=== PATIENT | male | born 1945 | race Caucasian/White ===

== ENCOUNTER 2018-01-01 19:44 | Inpatient (IN) | payer MEDICARE, OTHER ==
[~2018-01-01] VITALS: Ht 165.1 cm; Wt 80.8 kg
[~2018-01-01 19:44] MED LIST: AMOX500C PO; ASPI81TA23 PO; CELE20TA PO; DILA100C PO; LACT10SO PO; NORC5TAB PO; PLAV75TA29 PO; QUET1TAB7 PO; REST15CA PO; TAMS0.4C4 PO
[2018-01-01 19:53] VITALS: BP 137/73; PULSE 78; TEMP 97.8; O2SAT 97
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
[2018-01-01 20:40] LABS: BASOPHIL % 0.6 % (0.0-2.0); EOSINOPHIL # 0.1 TH/MM3 (0-0.4); EOSINOPHIL % 1.6 % (0.0-4.0); HEMATOCRIT 37.5 % (39.0-51.0); HEMOGLOBIN 12.8 GM/DL (13.0-17.0); LYMPH % 19.4 % (9.0-44.0); LYMPHOCYTE # 1.7 TH/MM3 (1.0-4.8); MEAN CELL VOLUME 86.1 FL (80.0-100.0); MEAN CORPUSCULAR HEMOGLOBIN 29.3 PG (27.0-34.0); MEAN PLATELET VOLUME 8.9 FL (7.0-11.0); MONO % 9.9 % (0.0-8.0); MONOCYTE # 0.9 TH/MM3 (0-0.9); NEUT % 68.5 % (16.0-70.0); PLATELET COUNT 241 TH/MM3 (150-450); RED BLOOD COUNT 4.36 MIL/MM3 (4.50-5.90); RED CELL DISTRIBUTION WIDTH 14.4 % (11.6-17.2); WHITE BLOOD COUNT 8.7 TH/MM3 (4.0-11.0)
[2018-01-01] MEDS ORDERED: LORazepam 2 MG/ML VIAL IM ONE (20:45)
[2018-01-01] MEDS ORDERED: diphenhydrAMINE HCL 50 MG/ML VIAL IM ONE (20:45)
[2018-01-01 20:56] LABS: ALBUMIN 3.7 GM/DL (3.4-5.0); ALT (GPT) 15 U/L (12-78); AST (GOT) 16 U/L (15-37); BICARBONATE 23.5 MEQ/L (21.0-32.0); BLOOD UREA NITROGEN 17 MG/DL (7-18); CHLORIDE 109 MEQ/L (98-107); CREATININE 1.07 MG/DL (0.60-1.30); GLOMERULAR FILTRATION RATE 68 ML/MIN (>89); GLUCOSE,RANDOM 113 MG/DL (74-106); SODIUM (NA) 142 MEQ/L (136-145)
[2018-01-01 21:05] LABS: ALKALINE PHOSPHATASE 94 U/L (45-117); TOTAL BILIRUBIN ADULT 0.2 MG/DL (0.2-1.0); TOTAL PROTEIN 7.2 GM/DL (6.4-8.2)
[2018-01-01 22:21] LABS: BILIRUBIN, URINE NEG (NEG); BLOOD, URINE NEG (NEG); GLUCOSE,URINE NEG (NEG); HYALINE CAST, URINE 5 /lpf (RARE); KETONE, URINE TRACE mg/dL (NEG); MUCUS URINE FEW /lpf (OCC); NITRITE,URINE NEG (NEG); URINE COLOR YELLOW (YELLW/STRAW); URINE LEUKOCYTE ESTERASE NEG (NEG)
[2018-01-01] MEDS ORDERED: OLANZapine IM 10 MG VIAL IM ONE (23:45)
[2018-01-02 06:50] VITALS: RESP 18
[2018-01-02] MEDS ORDERED: QUEtiapine FUMARATE 25 MG TAB PO ONE (14:00)
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
[2018-01-02] MEDS ORDERED: ALUMINUM/MAGNESIUM/SIMETH 30 ML CUP PO PRN (17:00)
[2018-01-02] MEDS ORDERED: MAGNESIUM HYDROXIDE SUSP 30 ML CUP PO PRN (17:00)
[2018-01-02] MEDS ORDERED: LORA-474 PO (17:12)
[2018-01-02] MEDS ORDERED: CELE20TA PO (17:12)
[2018-01-02] MEDS ORDERED: NEXI20CA PO (17:12)
[2018-01-02] MEDS ORDERED: SERO50TA PO (17:12)
[2018-01-02] MEDS ORDERED: LORazepam 2 MG/ML VIAL IM ONE (17:30)
[2018-01-02 18:05] VITALS: BP 127/78; PULSE 65; RESP 18; TEMP 97.7; O2SAT 97
[2018-01-02] MEDS ORDERED: LORazepam 2 MG/ML VIAL IV PUSH PRN ×4 (18:30)
[2018-01-02] MEDS ORDERED: FLUMAZENIL 0.5 MG/5 ML VIAL IV PUSH PRN (18:30)
[2018-01-02] MEDS ORDERED: LORazepam 2 MG TAB PO PRN (18:30)
[2018-01-02] MEDS: QUEtiapine FUMARATE 25 MG TAB PO SCH (21:52)
[2018-01-02] MEDS: LORazepam 1 MG TAB PO SCH (21:52)
[2018-01-03 06:20] VITALS: BP 124/62; PULSE 68; RESP 17; TEMP 97.9; O2SAT 99
[2018-01-03 08:33] LABS: BICARBONATE 30.2 MEQ/L (21.0-32.0); BLOOD UREA NITROGEN 18 MG/DL (7-18); CALCIUM 8.6 MG/DL (8.5-10.1); CHLORIDE 108 MEQ/L (98-107); CHOLESTEROL 206 MG/DL (120-200); CREATININE 0.94 MG/DL (0.60-1.30); GLOMERULAR FILTRATION RATE 79 ML/MIN (>89); GLUCOSE,RANDOM 86 MG/DL (74-106); SODIUM (NA) 144 MEQ/L (136-145); TRIGLYCERIDES 112 MG/DL (42-150)
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
[2018-01-03 08:59] LABS: CHOLESTEROL/ HDL RATIO 4.15 RATIO; HDL CHOLESTEROL 49.6 MG/DL (40.0-60.0); LDL CHOLESTEROL 134 MG/DL (0-99)
[2018-01-03] MEDS: QUEtiapine FUMARATE 25 MG TAB PO SCH ×2 (10:24→20:21)
[2018-01-03] MEDS: LORazepam 1 MG TAB PO SCH ×2 (10:24→20:21)
[2018-01-03] MEDS: PANTOPRAZOLE SOD 20 MG DELAYED RELEASE TAB PO SCH (10:25)
[2018-01-03] MEDS: CITALOPRAM HYDROBROMIDE 20 MG TAB PO SCH (10:25)
[2018-01-03 12:17] LABS: HEMOGLOBIN A1C 5.7 % (4.3-6.0)
--- NOTE | 2018-01-03 16:59 | EKG ---
Date Performed: 01/03/2018 Time Performed: 09:46:13 PTAGE: 72 years EKG: Sinus rhythm NORMAL ECG PREVIOUS TRACING : 06/22/2016 08.47 Since the previous tracing, no significant change noted DOCTOR: Bisi Vasquez Interpretating Date/Time 01/03/2018 16:58:52
[2018-01-03] MEDS ORDERED: HALOPERIDOL LACTATE 5 MG/ML AMP ONE (17:16)
[2018-01-03] MEDS ORDERED: LORazepam 2 MG/ML VIAL IM ONE (17:45)
[2018-01-03] MEDS ORDERED: HALOPERIDOL LACTATE 5 MG/ML AMP IM ONE (17:45)
[2018-01-03 17:53] VITALS: BP 122/69; PULSE 65; RESP 18; TEMP 98; O2SAT 99
[2018-01-04 05:16] VITALS: BP 127/68; PULSE 51; RESP 16; TEMP 97.8; O2SAT 99
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
--- NOTE | 2018-01-04 09:45 | PD.TTN ---
Patient Problems 1. Discharge planning 2. Medication compliance 3. Knowledge deficit 4. Lack of coping skills Progress Toward Goals Provider Present: Dr. Jesse Trinh Provider Input: MD recommendation to contact pt's previous facility to follow-up for re-admission. Psychiatric Counselors Present: Alanis Whiteside LCSW, Marcela eRsendez, [facility], Walter Griffin Jr., [facility], Supriya Rivera, [facility] Psych Therapist Input: Miguel to follow-up with discharge criteria by contacting [facility]. Group Spec/RT/OT/LAINEZ Present: Caryn Monroy OT, FATOU Simons Group Spec/RT/OT/LAINEZ Input: Pt has not been attending groups , he continues to be 1:1 supervision. Discharge Plan Pt is expected to return to [facility] Documentation Scribe: caryn monroy ms, otr Caryn Monroy OTR January 04, 2018 09:45
[2018-01-04] MEDS ORDERED: LORazepam 1 MG TAB PO SCH (10:00)
[2018-01-04] MEDS: PANTOPRAZOLE SOD 20 MG DELAYED RELEASE TAB PO SCH (10:21)
[2018-01-04] MEDS: LORazepam 1 MG TAB PO SCH ×2 (10:21→20:57)
[2018-01-04] MEDS: CITALOPRAM HYDROBROMIDE 20 MG TAB PO SCH (10:21)
[2018-01-04] MEDS ORDERED: ERGOCALCIFEROL (VIT D2) 50,000 UNIT CAP PO ONE (11:30)
[2018-01-04] MEDS: QUEtiapine FUMARATE 25 MG TAB PO SCH ×2 (12:18→18:00)
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
[2018-01-04 18:06] VITALS: BP 115/55; PULSE 60; RESP 18; TEMP 98.4; O2SAT 97
[2018-01-04 18:07] VITALS: BP 115/55; PULSE 60; RESP 18; TEMP 98.4; O2SAT 97
[2018-01-05] MEDS: hydrOXYzine HCL 50 MG TAB PO PRN (00:01)
[2018-01-05 05:47] VITALS: BP 131/65; PULSE 76; RESP 17; TEMP 97.8
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
--- NOTE | 2018-01-05 08:50 | HHI.PYPN ---
Subjective Remarks Patient seen in his room with sitter, chart reviewed, patient complaint medications, patient discussed with nurse. Patient had no behavioral issues overnight. Patient is calm and friendly diffusely disoriented and confused. Did not remember me from yesterday. Today states she does not have a . He has no children. For now continue treatment Mental Status Examination Appearance: Appropriate (In [facility]) Consciousness: Alert Orientation: Person Motor Activity: Abnormal gait (Shuffling gait) Speech: Other (Nonsensical speech pattern) Language: Other (Limited) Fund of Knowledge: Poor Attention and Concentration: Inadequate Memory: Impaired Mood: Appropriate, Oppositional (At times) Affect: Other (Decreased range and intensity) Thought Process & Associations: Other ([place]) Thought Content: Other (Markedly disorganized) Hallucination Type: None (Does not appear to be responding to internal stimuli) Delusion Type: None Suicidal Ideation: No Suicidal Plan: No Suicidal Intention: No Homicidal Ideation: No Homicidal Plan: No Homicidal Intention: No Insight: Poor Judgment: Poor Results Vitals/IOs Vital Signs Date Time Temp Pulse Resp B/P (MAP) Pulse Ox O2 Delivery O2 Flow Rate FiO2 01/05/18 05:47 97.8 76 17 131/65 (87) 01/04/18 18:07 97 Assessment & Plan Problem List: (1) Alzheimer's disease with late onset ICD Codes: G30.1 - Alzheimer's disease with late onset; F02.80 - Dementia in other diseases classified elsewhere without behavioral disturbance Assessment & Plan Estimated LOS: days patient continues diffusely confused and disoriented, no behavior problems overnight. For now continue treatment Justification for Cont. Inpt. At this time patient would decompensate a place to the lower level of care Discharge Planning To be determined possible return to his prior placement Request HC Surrog/Guard Advoc?: Yes Black Trinh MD January 05, 2018 08:50
[2018-01-05] MEDS: PANTOPRAZOLE SOD 20 MG DELAYED RELEASE TAB PO SCH (08:58)
[2018-01-05] MEDS: ASPIRIN EC 81 MG TABEC PO SCH (08:58)
[2018-01-05] MEDS: CITALOPRAM HYDROBROMIDE 20 MG TAB PO SCH (08:58)
[2018-01-05] MEDS: QUEtiapine FUMARATE 25 MG TAB PO SCH ×3 (08:59→18:00)
[2018-01-05] MEDS: LORazepam 1 MG TAB PO SCH ×2 (08:59→21:00)
[2018-01-05] MEDS: CHOLECALCIFEROL (VIT D3) 1000 UNIT TAB PO SCH (08:59)
[2018-01-05] MEDS: HYDROCORTISONE 0.5% CREAM 30 GM TOPICAL SCH ×2 (09:00→17:00)
[2018-01-05] MEDS: LORazepam 1 MG TAB PO PRN (13:46)
[2018-01-05 18:06] VITALS: BP 136/63; PULSE 80; RESP 18; O2SAT 96
[2018-01-06] MEDS: HYDROCORTISONE 0.5% CREAM 30 GM TOPICAL SCH ×3 (01:00→17:00)
[2018-01-06 06:00] VITALS: BP 147/78; PULSE 63; RESP 15; TEMP 97.4; O2SAT 98
[2018-01-06 08:26] VITALS: BP 109/64; PULSE 61; O2SAT 100
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
[2018-01-06] MEDS: CHOLECALCIFEROL (VIT D3) 1000 UNIT TAB PO SCH (09:31)
[2018-01-06] MEDS: QUEtiapine FUMARATE 25 MG TAB PO SCH ×3 (09:31→17:23)
[2018-01-06] MEDS: ASPIRIN EC 81 MG TABEC PO SCH (09:31)
[2018-01-06] MEDS: LORazepam 1 MG TAB PO SCH ×2 (09:31→20:17)
[2018-01-06] MEDS: PANTOPRAZOLE SOD 20 MG DELAYED RELEASE TAB PO SCH (09:31)
[2018-01-06] MEDS: CITALOPRAM HYDROBROMIDE 20 MG TAB PO SCH (09:31)
--- NOTE | 2018-01-06 10:05 | HHI.PYPN ---
Subjective Remarks Met with patient's caretakers who are and along with nurse Sheldon and counselor Supriya, the have been caring for this gentleman for many years. The also his power of managing attorney. They discussed with us his behaviors at and to go problems that led to this hospitalization. It is being investigated by DCFS at this time. Patient then sitting in his room with nurse and sitter, patient is quiet speaking in nonsensical words, refusing his oral medications. Though he did eat all of his breakfast. For now continue treatment encouraging compliance with medication Review of Systems Except as stated in HPI: all other systems reviewed are Neg Mental Status Examination Appearance: Appropriate (In [facility]) Consciousness: Alert Orientation: Person Motor Activity: Abnormal gait (Shuffling gait) Speech: Other (Nonsensical speech pattern) Language: Other (Limited) Fund of Knowledge: Poor Attention and Concentration: Inadequate Memory: Impaired Mood: Appropriate, Oppositional (At times) Affect: Other (Decreased range and intensity) Thought Process & Associations: Other ([place]) Thought Content: Other (Markedly disorganized) Hallucination Type: None (Does not appear to be responding to internal stimuli) Delusion Type: None Suicidal Ideation: No Suicidal Plan: No Suicidal Intention: No Homicidal Ideation: No Homicidal Plan: No Homicidal Intention: No Insight: Poor Judgment: Poor Results Vitals/IOs Vital Signs Date Time Temp Pulse Resp B/P (MAP) Pulse Ox O2 Delivery O2 Flow Rate FiO2 01/06/18 08:26 61 109/64 (79) 100 01/06/18 06:00 97.4 15 Assessment & Plan Problem List: (1) Alzheimer's disease with late onset ICD Codes: G30.1 - Alzheimer's disease with late onset; F02.80 - Dementia in other diseases classified elsewhere without behavioral disturbance Assessment & Plan Estimated LOS: days patient continues demented confused in all 4 spheres, showing mixed compliance with medication, though no significant behavioral problems. Placement may be problematic since there is a DCF investigation going on it and legal problems concerning this man's behavior Justification for Cont. Inpt. At this time patient would decompensate a place to a lower level of care Discharge Planning To be determined Request HC Surrog/Guard Advoc?: Yes Problem Qualifiers (1) Alzheimer's disease with late onset: Qualified Codes: G30.1 - Alzheimer's disease with late onset; F02.81 - Dementia in other diseases classified elsewhere with behavioral disturbance Black Trinh MD January 06, 2018 10:05
[2018-01-06 16:51] VITALS: BP 138/109; PULSE 70; RESP 16; TEMP 97.6; O2SAT 98
[2018-01-06 17:30] VITALS: BP 130/90
[2018-01-06] MEDS: ACETAMINOPHEN 325 MG TAB PO PRN (20:17)
[2018-01-07] MEDS: HYDROCORTISONE 0.5% CREAM 30 GM TOPICAL SCH (01:00)
[2018-01-07 06:00] VITALS: BP 164/78; PULSE 58; RESP 18; TEMP 97.1; O2SAT 99
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
[2018-01-07] MEDS ORDERED: HYDROCORTISONE 0.5% CREAM 30 GM TOPICAL PRN (09:00)
[2018-01-07] MEDS: PANTOPRAZOLE SOD 20 MG DELAYED RELEASE TAB PO SCH (10:26)
[2018-01-07] MEDS: QUEtiapine FUMARATE 25 MG TAB PO SCH ×3 (10:26→17:59)
[2018-01-07] MEDS: CHOLECALCIFEROL (VIT D3) 1000 UNIT TAB PO SCH (10:27)
[2018-01-07] MEDS: ASPIRIN EC 81 MG TABEC PO SCH (10:27)
[2018-01-07] MEDS: LORazepam 1 MG TAB PO SCH ×2 (10:27→20:52)
[2018-01-07] MEDS: CITALOPRAM HYDROBROMIDE 20 MG TAB PO SCH (10:38)
--- NOTE | 2018-01-07 14:49 | HHI.PYPN ---
Subjective Remarks Patient seen [place] [address] with his and caretakers. Patient retained with continuation of case by Romero Finch highway design engineer to be guardian advocate. Patient was quite quiet during the hearing. Patient calm when speaking with me on the unit. Continues diffusely confused. For now continue treatment Review of Systems Except as stated in HPI: all other systems reviewed are Neg Mental Status Examination Appearance: Appropriate (In [facility]) Consciousness: Alert Orientation: Person Motor Activity: Abnormal gait (Shuffling gait) Speech: Other (Nonsensical speech pattern) Language: Other (Limited) Fund of Knowledge: Poor Attention and Concentration: Inadequate Memory: Impaired Mood: Appropriate, Oppositional (At times) Affect: Other (Decreased range and intensity) Thought Process & Associations: Other ([place]) Thought Content: Other (Markedly disorganized) Hallucination Type: None (Does not appear to be responding to internal stimuli) Delusion Type: None Suicidal Ideation: No Suicidal Plan: No Suicidal Intention: No Homicidal Ideation: No Homicidal Plan: No Homicidal Intention: No Insight: Poor Judgment: Poor Results Vitals/IOs Vital Signs Date Time Temp Pulse Resp B/P (MAP) Pulse Ox O2 Delivery O2 Flow Rate FiO2 01/07/18 06:00 97.1 58 18 164/78 (106) 99 Intake and Output 01/07/18 01/07/18 01/08/18 08:00 16:00 00:00 Intake Total 360 ml Balance 360 ml Assessment & Plan Problem List: (1) Alzheimer's disease with late onset ICD Codes: G30.1 - Alzheimer's disease with late onset; F02.80 - Dementia in other diseases classified elsewhere without behavioral disturbance Assessment & Plan Estimated LOS: days patient continues confused and disoriented demented the most significant behavioral problems, retained with case continued by Dr. Finch for now continue treatment Justification for Cont. Inpt. At this time patient would decompensate a place to the lower level of care Discharge Planning Need to find appropriate placement Request HC Surrog/Guard Advoc?: Yes Problem Qualifiers (1) Alzheimer's disease with late onset: Qualified Codes: G30.1 - Alzheimer's disease with late onset; F02.81 - Dementia in other diseases classified elsewhere with behavioral disturbance Black Trinh MD January 07, 2018 14:49
[2018-01-07] MEDS: LORazepam 1 MG TAB PO PRN (17:59)
[2018-01-07 18:05] VITALS: BP 143/76; PULSE 52; RESP 16; TEMP 97.6; O2SAT 95
[2018-01-07 18:06] VITALS: BP 143/76; PULSE 52; RESP 16; TEMP 97.6; O2SAT 95
[2018-01-08 06:37] VITALS: BP 155/83; PULSE 65; RESP 17; O2SAT 97
--- NOTE | 2018-01-08 08:46 | HHI.PYPN ---
Subjective Remarks Patient seen in his room with floor staff, chart reviewed, patient discussed with nurse, patient compliant medication. Patient is alert diffusely confused but no significant behavioral problems. He is compliant with medications. For now to continue to work on placement issues Review of Systems Except as stated in HPI: all other systems reviewed are Neg Mental Status Examination Appearance: Appropriate (In [facility]) Consciousness: Alert Orientation: Person Motor Activity: Abnormal gait (Shuffling gait) Speech: Other (Nonsensical speech pattern) Language: Other (Limited) Fund of Knowledge: Poor Attention and Concentration: Inadequate Memory: Impaired Mood: Appropriate, Oppositional (At times) Affect: Other (Decreased range and intensity) Thought Process & Associations: Other ([place]) Thought Content: Other (Markedly disorganized) Hallucination Type: None (Does not appear to be responding to internal stimuli) Delusion Type: None Suicidal Ideation: No Suicidal Plan: No Suicidal Intention: No Homicidal Ideation: No Homicidal Plan: No Homicidal Intention: No Insight: Poor Judgment: Poor Results Vitals/IOs Vital Signs Date Time Temp Pulse Resp B/P (MAP) Pulse Ox O2 Delivery O2 Flow Rate FiO2 01/08/18 06:37 65 17 155/83 (107) 97 01/07/18 18:06 97.6 Intake and Output 01/08/18 01/08/18 01/09/18 08:00 16:00 00:00 Intake Total 0 ml Balance 0 ml Assessment & Plan Problem List: (1) Alzheimer's disease with late onset ICD Codes: G30.1 - Alzheimer's disease with late onset; F02.80 - Dementia in other diseases classified elsewhere without behavioral disturbance Assessment & Plan Estimated LOS: days patient continues demented confused. There are no behavioral problems at the present time for now continue treatment Justification for Cont. Inpt. At this time patient would decompensate a place to the lower level of care Discharge Planning To be determined Request HC Surrog/Guard Advoc?: Yes Problem Qualifiers (1) Alzheimer's disease with late onset: Qualified Codes: G30.1 - Alzheimer's disease with late onset; F02.81 - Dementia in other diseases classified elsewhere with behavioral disturbance Black Trinh MD January 08, 2018 08:46
[2018-01-08] MEDS: PANTOPRAZOLE SOD 20 MG DELAYED RELEASE TAB PO SCH (08:49)
[2018-01-08] MEDS: CITALOPRAM HYDROBROMIDE 20 MG TAB PO SCH (08:49)
[2018-01-08] MEDS: CHOLECALCIFEROL (VIT D3) 1000 UNIT TAB PO SCH (08:49)
[2018-01-08] MEDS: LORazepam 1 MG TAB PO SCH ×2 (08:49→20:46)
[2018-01-08] MEDS: ASPIRIN EC 81 MG TABEC PO SCH (08:50)
[2018-01-08] MEDS: QUEtiapine FUMARATE 25 MG TAB PO SCH ×3 (08:50→17:40)
[2018-01-08] MEDS: LORazepam 1 MG TAB PO PRN (15:26)
[2018-01-08 18:11] VITALS: BP 116/56; PULSE 87; RESP 18; O2SAT 97
[2018-01-09 06:00] VITALS: BP 134/66; PULSE 59; RESP 17; TEMP 97.4; O2SAT 97
[2018-01-09] MEDS: CITALOPRAM HYDROBROMIDE 20 MG TAB PO SCH (08:46)
[2018-01-09] MEDS: PANTOPRAZOLE SOD 20 MG DELAYED RELEASE TAB PO SCH (08:46)
[2018-01-09] MEDS: CHOLECALCIFEROL (VIT D3) 1000 UNIT TAB PO SCH (08:46)
[2018-01-09] MEDS: QUEtiapine FUMARATE 25 MG TAB PO SCH ×3 (08:46→18:00)
[2018-01-09] MEDS: LORazepam 1 MG TAB PO SCH ×2 (08:46→21:10)
[2018-01-09] MEDS: ASPIRIN EC 81 MG TABEC PO SCH (08:48)
--- NOTE | 2018-01-09 11:53 | HHI.PYPN ---
Subjective Remarks Pt seen and discussed with staff. He remains confused but has not been aggressive today. He is talking medications and is cooperative with car. He continues to have visual hallucinations and believes that people are in the bed with him per staff. He is oriented to self only and very disorganized and nonsensical. Mental Status Examination Appearance: Appropriate (In [facility]) Consciousness: Alert Orientation: Person Motor Activity: Abnormal gait (Shuffling gait) Speech: Other (Nonsensical speech pattern) Language: Other (Limited) Fund of Knowledge: Poor Attention and Concentration: Inadequate Memory: Impaired (very poor) Mood: Appropriate, Oppositional (At times) Affect: Other (Decreased range and intensity) Thought Process & Associations: Disorganized Thought Content: Other (Markedly nonsensical) Hallucination Type: None (Does not appear to be responding to internal stimuli) Delusion Type: None Suicidal Ideation: No Suicidal Plan: No Suicidal Intention: No Homicidal Ideation: No Homicidal Plan: No Homicidal Intention: No Insight: Poor Judgment: Poor Results Vitals/IOs Vital Signs Date Time Temp Pulse Resp B/P (MAP) Pulse Ox O2 Delivery O2 Flow Rate FiO2 01/09/18 06:00 97.4 59 17 134/66 (88) 97 Assessment & Plan Problem List: (1) Alzheimer's disease with late onset ICD Codes: G30.1 - Alzheimer's disease with late onset; F02.80 - Dementia in other diseases classified elsewhere without behavioral disturbance Assessment & Plan Continue current tx plan. Estimated LOS: days Justification for Cont. Inpt. risk of decompensation Request HC Surrog/Guard Advoc?: Yes Problem Qualifiers (1) Alzheimer's disease with late onset: Qualified Codes: G30.1 - Alzheimer's disease with late onset; F02.81 - Dementia in other diseases classified elsewhere with behavioral disturbance Carrol Howe MD January 09, 2018 11:53
[2018-01-09 18:45] VITALS: BP 131/81; PULSE 57; RESP 16; TEMP 97.8; O2SAT 98
[2018-01-10] MEDS: PANTOPRAZOLE SOD 20 MG DELAYED RELEASE TAB PO SCH (09:00)
[2018-01-10] MEDS: QUEtiapine FUMARATE 25 MG TAB PO SCH ×3 (09:00→17:15)
[2018-01-10] MEDS: ASPIRIN EC 81 MG TABEC PO SCH (09:00)
[2018-01-10] MEDS: LORazepam 1 MG TAB PO SCH ×2 (09:00→20:35)
[2018-01-10] MEDS: CHOLECALCIFEROL (VIT D3) 1000 UNIT TAB PO SCH (09:00)
[2018-01-10] MEDS: CITALOPRAM HYDROBROMIDE 20 MG TAB PO SCH (09:00)
--- NOTE | 2018-01-10 14:12 | HHI.PYPN ---
Subjective Remarks Pt seen and discussed with staff. He remains on 1:1 for falls risk. He remains confused and ramblings and mumbles. He slept well last night and has been compliant with medications. No aggression today. Mental Status Examination Appearance: Appropriate (In [facility]) Consciousness: Alert Orientation: Person Motor Activity: Abnormal gait (Shuffling gait) Speech: Other (Nonsensical speech pattern) Language: Other (Limited) Fund of Knowledge: Poor Attention and Concentration: Inadequate Memory: Impaired (very poor) Mood: Appropriate, Oppositional (At times) Affect: Other (Decreased range and intensity) Thought Process & Associations: Disorganized Thought Content: Other (Markedly nonsensical) Hallucination Type: None Delusion Type: None Suicidal Ideation: No Suicidal Plan: No Suicidal Intention: No Homicidal Ideation: No Homicidal Plan: No Homicidal Intention: No Insight: Poor Judgment: Poor Results Vitals/IOs Vital Signs Date Time Temp Pulse Resp B/P (MAP) Pulse Ox O2 Delivery O2 Flow Rate FiO2 01/09/18 18:45 97.8 57 16 131/81 (98) 98 Assessment & Plan Problem List: (1) Alzheimer's disease with late onset ICD Codes: G30.1 - Alzheimer's disease with late onset; F02.80 - Dementia in other diseases classified elsewhere without behavioral disturbance Assessment & Plan Continue current tx plan. Estimated LOS: days Justification for Cont. Inpt. risk of decompensation Request HC Surrog/Guard Advoc?: Yes Problem Qualifiers (1) Alzheimer's disease with late onset: Qualified Codes: G30.1 - Alzheimer's disease with late onset; F02.81 - Dementia in other diseases classified elsewhere with behavioral disturbance Carrol Howe MD January 10, 2018 14:12
[2018-01-10 17:13] VITALS: BP 138/63; PULSE 57; RESP 16; TEMP 98.1; O2SAT 98
[2018-01-10] MEDS: hydrOXYzine HCL 50 MG TAB PO PRN (20:35)
[2018-01-11] MEDS: LORazepam 1 MG TAB PO SCH ×2 (09:22→20:53)
[2018-01-11] MEDS: CHOLECALCIFEROL (VIT D3) 1000 UNIT TAB PO SCH (09:22)
[2018-01-11] MEDS: QUEtiapine FUMARATE 25 MG TAB PO SCH ×2 (09:22→12:31)
[2018-01-11] MEDS: ASPIRIN EC 81 MG TABEC PO SCH (09:22)
[2018-01-11] MEDS: PANTOPRAZOLE SOD 20 MG DELAYED RELEASE TAB PO SCH (09:22)
[2018-01-11] MEDS: CITALOPRAM HYDROBROMIDE 20 MG TAB PO SCH (09:22)
--- NOTE | 2018-01-11 13:59 | PD.TTN ---
Patient Problems 1. Discharge planning 2. Medication compliance 3. Knowledge deficit 4. Lack of coping skills Progress Toward Goals Provider Present: Dr. Jesse Trinh Provider Input: 01/11/18 overall compliant and appearing back to baseline MD recommendation to contact pt's previous facility to follow-up for/ re-admission. Nurse(s) Input: 01/11/18 Robert med compliant sleeps well, sun downer , aggitation and confused Psychiatric Counselors Present: Alanis Whiteside LCSW, Marcela Resendez, [facility], Waltre Griffin Jr., [facility], Supriya Rivera, [facility] Psych Therapist Input: 01/11/18 Can return to [facility] if state cleared placement Ms. Rivera to follow-up with discharge criteria by contacting [facility]. Group Spec/RT/OT/LAINEZ Present: Caryn Monroy OT, FATOU Simons Group Spec/RT/OT/LAINEZ Input: 01/11/18 needs direction, does not attend groups and is disruptive , easily overwhelmed Pt has not been attending groups , he continues to be 1:1 supervision. Discharge Plan Pt is expected to return to [facility] Documentation Scribe: caryn monroy, , otr Alanis Whiteside LCSW January 11, 2018 13:59
--- NOTE | 2018-01-11 14:45 | HHI.PYPN ---
Subjective Remarks Patient seen in day room with nurse Robert, and patient's sitter patient sitting calmly in day room he is diffusely confused and disoriented making no sense of his speech. Staff states later in the afternoon into the evening he becomes somewhat more aggressive tremor signs of sundowning. We will increase to 2 PM and 8 PM Seroquel to 100 mg, keep the morning dose at 50 mg Review of Systems Except as stated in HPI: all other systems reviewed are Neg Mental Status Examination Appearance: Appropriate (In [facility]) Consciousness: Alert Orientation: Person Motor Activity: Abnormal gait (Shuffling gait) Speech: Other (Nonsensical speech pattern) Language: Other (Limited) Fund of Knowledge: Poor Attention and Concentration: Inadequate Memory: Impaired (very poor) Mood: Appropriate, Oppositional (At times) Affect: Other (Decreased range and intensity) Thought Process & Associations: Disorganized Thought Content: Other (Markedly nonsensical) Hallucination Type: None Delusion Type: None Suicidal Ideation: No Suicidal Plan: No Suicidal Intention: No Homicidal Ideation: No Homicidal Plan: No Homicidal Intention: No Insight: Poor Judgment: Poor Results Vitals/IOs Vital Signs Date Time Temp Pulse Resp B/P (MAP) Pulse Ox O2 Delivery O2 Flow Rate FiO2 01/10/18 17:13 98.1 57 16 138/63 (88) 98 Intake and Output 01/11/18 01/11/18 01/12/18 08:00 16:00 00:00 Intake Total 120 ml Balance 120 ml Assessment & Plan Problem List: (1) Alzheimer's disease with late onset ICD Codes: G30.1 - Alzheimer's disease with late onset; F02.80 - Dementia in other diseases classified elsewhere without behavioral disturbance Assessment & Plan Estimated LOS: days patient continues demented and confused with some increase in his sundowning behaviors she medication adjustments above Justification for Cont. Inpt. At this time patient would decompensate a place to the lower level of care Discharge Planning Continue to work on placement issues Request HC Surrog/Guard Advoc?: Yes Problem Qualifiers (1) Alzheimer's disease with late onset: Qualified Codes: G30.1 - Alzheimer's disease with late onset; F02.81 - Dementia in other diseases classified elsewhere with behavioral disturbance Black Trinh MD January 11, 2018 14:45
[2018-01-11 18:14] VITALS: BP 167/73; PULSE 70; RESP 16
[2018-01-11] MEDS: QUEtiapine FUMARATE 100 MG TAB PO SCH (20:53)
[2018-01-12] MEDS: CITALOPRAM HYDROBROMIDE 20 MG TAB PO SCH (08:53)
[2018-01-12] MEDS: PANTOPRAZOLE SOD 20 MG DELAYED RELEASE TAB PO SCH (08:53)
[2018-01-12] MEDS: LORazepam 1 MG TAB PO SCH ×2 (08:54→20:19)
[2018-01-12] MEDS: ASPIRIN EC 81 MG TABEC PO SCH (08:54)
[2018-01-12] MEDS: CHOLECALCIFEROL (VIT D3) 1000 UNIT TAB PO SCH (08:55)
[2018-01-12] MEDS: QUEtiapine FUMARATE 25 MG TAB PO SCH (08:55)
--- NOTE | 2018-01-12 14:20 | HHI.PYPN ---
Subjective Remarks Patient is seen in his room with sitter chart reviewed, patient compliant medications, patient discussed with nurse, patient continues diffusely confused and disoriented though no behavioral problems noted. Patient has not been eating very well recheck labs tomorrow morning also offered patient health shakes Review of Systems Except as stated in HPI: all other systems reviewed are Neg Mental Status Examination Appearance: Appropriate (In [facility]) Consciousness: Alert Orientation: Person Motor Activity: Abnormal gait (Shuffling gait) Speech: Other (Nonsensical speech pattern) Language: Other (Limited) Fund of Knowledge: Poor Attention and Concentration: Inadequate Memory: Impaired (very poor) Mood: Appropriate, Oppositional (At times) Affect: Other (Decreased range and intensity) Thought Process & Associations: Disorganized Thought Content: Other (Markedly nonsensical) Hallucination Type: None Delusion Type: None Suicidal Ideation: No Suicidal Plan: No Suicidal Intention: No Homicidal Ideation: No Homicidal Plan: No Homicidal Intention: No Insight: Poor Judgment: Poor Results Vitals/IOs Vital Signs Date Time Temp Pulse Resp B/P (MAP) Pulse Ox O2 Delivery O2 Flow Rate FiO2 01/11/18 18:14 70 16 167/73 (104) 01/10/18 17:13 98.1 98 Intake and Output 01/12/18 01/12/18 01/13/18 08:00 16:00 00:00 Intake Total 480 ml Balance 480 ml Assessment & Plan Problem List: (1) Alzheimer's disease with late onset ICD Codes: G30.1 - Alzheimer's disease with late onset; F02.80 - Dementia in other diseases classified elsewhere without behavioral disturbance Assessment & Plan Estimated LOS: days patient continues demented and confused the low significant behavioral problems at this time. For now continue treatment. We will repeat labs tomorrow morning we will also add health shake to diet Justification for Cont. Inpt. At this time patient would decompensate a place to a lower level of care Discharge Planning To be determined possible return back to them to go problems Request HC Surrog/Guard Advoc?: Yes Problem Qualifiers (1) Alzheimer's disease with late onset: Qualified Codes: G30.1 - Alzheimer's disease with late onset; F02.81 - Dementia in other diseases classified elsewhere with behavioral disturbance Black Trinh MD January 12, 2018 14:20
[2018-01-12] MEDS: QUEtiapine FUMARATE 100 MG TAB PO SCH ×2 (15:20→20:00)
--- NOTE | 2018-01-12 15:53 | PD.TTN ---
Patient Problems 1. Discharge planning 2. Medication compliance 3. Knowledge deficit 4. Lack of coping skills Progress Toward Goals Provider Present: Dr. Jesse Trinh Provider Input: 01/11/18 overall compliant and appearing back to baseline 01/08/18 MD recommendation to contact pt's previous facility to follow-up for/ re-admission. Nurse(s) Input: 01/11/18 Robert med compliant sleeps well, sun downer , aggitation and confused Psychiatric Counselors Present: Alanis Whiteside LCSW, Marcela Resendez, [facility], Walter Griffin Jr., [facility], Supriya Rivera, [facility] Psych Therapist Input: 01/11/18 Can return to [facility] if state cleared placement 01/08/18 Ms. Rivera to follow-up with discharge criteria by contacting [facility]. Group Spec/RT/OT/LAINEZ Present: Caryn Monroy OT, FATOU Simons Group Spec/RT/OT/LAINEZ Input: 01/11/18 needs direction, does not attend groups and is disruptive , easily overwhelmed 01/08/18 Pt has not been attending groups , he continues to be 1:1 supervision. Discharge Plan Pt is expected to return to [facility] Documentation Scribe: caryn monroy ms, otr Alanis Whiteside LCSW January 12, 2018 15:53
--- NOTE | 2018-01-12 15:53 | PD.TTN ---
Patient Problems 1. Discharge planning 2. Medication compliance 3. Knowledge deficit 4. Lack of coping skills Progress Toward Goals Provider Present: Dr. Jesse Trinh Provider Input: 01/11/18 overall compliant and appearing back to baseline 01/08/18 MD recommendation to contact pt's previous facility to follow-up for/ re-admission. Nurse(s) Input: 01/11/18 Robert med compliant sleeps well, sun downer , aggitation and confused Psychiatric Counselors Present: Alanis Whiteside LCSW, Marcela Resendez, [facility], Walter Griffin Jr., [facility], Supriya Rivera, [facility] Psych Therapist Input: 01/11/18 Can return to [facility] if state cleared placement 01/08/18 Ms. Rivera to follow-up with discharge criteria by contacting [facility]. Group Spec/RT/OT/LAINEZ Present: Caryn Monroy OT, FATOU Simons Group Spec/RT/OT/LAINEZ Input: 01/11/18 needs direction, does not attend groups and is disruptive , easily overwhelmed 01/08/18 Pt has not been attending groups , he continues to be 1:1 supervision. Discharge Plan Pt is expected to return to [facility] Documentation Scribe: caryn monroy ms, otr Alanis Whiteside LCSW January 12, 2018 15:53
[2018-01-12 17:21] LABS: ALBUMIN 3.8 GM/DL (3.4-5.0); ALT (GPT) 16 U/L (12-78); AST (GOT) 11 U/L (15-37); BICARBONATE 26.7 MEQ/L (21.0-32.0); BLOOD UREA NITROGEN 22 MG/DL (7-18); CALCIUM 8.8 MG/DL (8.5-10.1); CHLORIDE 106 MEQ/L (98-107); CREATININE 0.81 MG/DL (0.60-1.30); GLOMERULAR FILTRATION RATE 94 ML/MIN (>89); GLUCOSE,RANDOM 105 MG/DL (74-106); SODIUM (NA) 141 MEQ/L (136-145)
[2018-01-12 17:24] LABS: ALKALINE PHOSPHATASE 81 U/L (45-117); TOTAL BILIRUBIN ADULT 0.3 MG/DL (0.2-1.0); TOTAL PROTEIN 7.2 GM/DL (6.4-8.2)
[2018-01-12 18:19] VITALS: BP 118/68; PULSE 64; RESP 18; TEMP 97.8; O2SAT 99
[2018-01-12] MEDS: hydrOXYzine HCL 50 MG TAB PO PRN (20:18)
[2018-01-12] MEDS: ACETAMINOPHEN 325 MG TAB PO PRN (20:19)
[2018-01-13 06:00] VITALS: BP 115/60; PULSE 61; RESP 18; O2SAT 100
[2018-01-13 07:48] LABS: BASOPHIL % 0.6 % (0.0-2.0); EOSINOPHIL # 0.3 TH/MM3 (0-0.4); EOSINOPHIL % 4.1 % (0.0-4.0); HEMATOCRIT 39.5 % (39.0-51.0); HEMOGLOBIN 12.9 GM/DL (13.0-17.0); LYMPH % 35.8 % (9.0-44.0); LYMPHOCYTE # 2.3 TH/MM3 (1.0-4.8); MEAN CELL VOLUME 87.3 FL (80.0-100.0); MEAN CORPUSCULAR HEMOGLOBIN 28.5 PG (27.0-34.0); MEAN CORPUSCULAR HGB CONC 32.7 % (32.0-36.0); MEAN PLATELET VOLUME 8.7 FL (7.0-11.0); MONO % 12.5 % (0.0-8.0); MONOCYTE # 0.8 TH/MM3 (0-0.9); PLATELET COUNT 242 TH/MM3 (150-450); RED BLOOD COUNT 4.52 MIL/MM3 (4.50-5.90); RED CELL DISTRIBUTION WIDTH 14.1 % (11.6-17.2); WHITE BLOOD COUNT 6.5 TH/MM3 (4.0-11.0)
[2018-01-13] MEDS: CHOLECALCIFEROL (VIT D3) 1000 UNIT TAB PO SCH (08:42)
[2018-01-13] MEDS: PANTOPRAZOLE SOD 20 MG DELAYED RELEASE TAB PO SCH (08:42)
[2018-01-13] MEDS: QUEtiapine FUMARATE 25 MG TAB PO SCH (08:42)
[2018-01-13] MEDS: ASPIRIN EC 81 MG TABEC PO SCH (08:42)
[2018-01-13] MEDS: CITALOPRAM HYDROBROMIDE 20 MG TAB PO SCH (08:42)
[2018-01-13] MEDS: LORazepam 1 MG TAB PO SCH ×2 (08:43→20:37)
--- NOTE | 2018-01-13 10:12 | HHI.PYPN ---
Subjective Remarks Patient seen in his room with nurse. Chart reviewed. Patient compliant medication. Patient discussed with nurse. Patient is sitting in [place] chair with a sitter present also. Patient calm pleasant with me continues diffusely confused and disoriented. He has been no behavior problems at today. We continue to await word from the medical problems as to when patient may return there Review of Systems Except as stated in HPI: all other systems reviewed are Neg Mental Status Examination Appearance: Appropriate (In [facility]) Consciousness: Alert Orientation: Person Motor Activity: Abnormal gait (Shuffling gait) Speech: Other (Nonsensical speech pattern) Language: Other (Limited) Fund of Knowledge: Poor Attention and Concentration: Inadequate Memory: Impaired (very poor) Mood: Appropriate, Oppositional (At times) Affect: Other (Decreased range and intensity) Thought Process & Associations: Disorganized Thought Content: Other (Markedly nonsensical) Hallucination Type: None Delusion Type: None Suicidal Ideation: No Suicidal Plan: No Suicidal Intention: No Homicidal Ideation: No Homicidal Plan: No Homicidal Intention: No Insight: Poor Judgment: Poor Results Labs Test 01/12/18 16:39 01/13/18 06:44 Blood Urea Nitrogen 22 MG/DL Creatinine 0.81 MG/DL Random Glucose 105 MG/DL Total Protein 7.2 GM/DL Albumin 3.8 GM/DL Calcium Level 8.8 MG/DL Alkaline Phosphatase 81 U/L Aspartate Amino Transf (AST/SGOT) 11 U/L Alanine Aminotransferase (ALT/SGPT) 16 U/L Total Bilirubin 0.3 MG/DL Sodium Level 141 MEQ/L Potassium Level 3.9 MEQ/L Chloride Level 106 MEQ/L Carbon Dioxide Level 26.7 MEQ/L Anion Gap 8 MEQ/L Estimat Glomerular Filtration Rate 94 ML/MIN White Blood Count 6.5 TH/MM3 Red Blood Count 4.52 MIL/MM3 Hemoglobin 12.9 GM/DL Hematocrit 39.5 % Mean Corpuscular Volume 87.3 FL Mean Corpuscular Hemoglobin 28.5 PG Mean Corpuscular Hemoglobin Concent 32.7 % Red Cell Distribution Width 14.1 % Platelet Count 242 TH/MM3 Mean Platelet Volume 8.7 FL Neutrophils (%) (Auto) 47.0 % Lymphocytes (%) (Auto) 35.8 % Monocytes (%) (Auto) 12.5 % Eosinophils (%) (Auto) 4.1 % Basophils (%) (Auto) 0.6 % Neutrophils # (Auto) 3.0 TH/MM3 Lymphocytes # (Auto) 2.3 TH/MM3 Monocytes # (Auto) 0.8 TH/MM3 Eosinophils # (Auto) 0.3 TH/MM3 Basophils # (Auto) 0.0 TH/MM3 CBC Comment DIFF FINAL Differential Comment Vitals/IOs Vital Signs Date Time Temp Pulse Resp B/P (MAP) Pulse Ox O2 Delivery O2 Flow Rate FiO2 01/13/18 06:00 61 18 115/60 (78) 100 01/12/18 18:19 97.8 Intake and Output 01/13/18 01/13/18 01/14/18 08:00 16:00 00:00 Intake Total 480 ml Balance 480 ml Assessment & Plan Problem List: (1) Alzheimer's disease with late onset ICD Codes: G30.1 - Alzheimer's disease with late onset; F02.80 - Dementia in other diseases classified elsewhere without behavioral disturbance Assessment & Plan Estimated LOS: days patient continues confused and demented, though behavioral problems, he is pleasant with me. For now continue treatment Justification for Cont. Inpt. At this time patient would decompensate if not placed in an appropriate level of care Discharge Planning Await word from placement Request HC Surrog/Guard Advoc?: Yes Problem Qualifiers (1) Alzheimer's disease with late onset: Qualified Codes: G30.1 - Alzheimer's disease with late onset; F02.81 - Dementia in other diseases classified elsewhere with behavioral disturbance Black Trinh MD January 13, 2018 10:12
--- NOTE | 2018-01-13 11:47 | PD.TTN ---
Patient Problems 1. Discharge planning 2. Medication compliance 3. Knowledge deficit 4. Lack of coping skills Progress Toward Goals Provider Present: Dr. Jesse Trinh Provider Input: 01/13/2018; patient is medication compliant and has improved with mood and behavior 01/11/18 overall compliant and appearing back to baseline 01/08/18 MD recommendation to contact pt's previous facility to follow-up for/ re-admission. Nurse(s) Present: Lani Nurse(s) Input: 01/13/2018; patient is med compliant, eating, has confusion and disorganized behaviors requires redirection and coaching 01/11/18 Robert med compliant sleeps well, sun downer , aggitation and confused Psychiatric Counselors Present: Alanis Whiteside LCSW, Marcela Resendez, [facility], Walter Griffin Jr., [facility], Supriya Rivera [facility] Psych Therapist Input: 01/13/2018; Counselor will cotnact [facility] to ask if patient is cleared via State to return 01/11/18 Can return to [facility] if state cleared placement 01/08/18 Miguel to follow-up with discharge criteria by contacting [facility]. Group Spec/RT/OT/LAINEZ Present: Lewis Land OT, FATOU Simons Group Spec/RT/OT/LAINEZ Input: 01/11/18 needs direction, does not attend groups and is disruptive , easily overwhelmed 01/08/18 Pt has not been attending groups , he continues to be 1:1 supervision. Discharge Plan Pt is expected to return to [facility] Documentation Scribe: Supriya Ivan [facility] January 13, 2018 11:47
[2018-01-13] MEDS: QUEtiapine FUMARATE 100 MG TAB PO SCH ×2 (13:53→20:37)
[2018-01-13 17:38] VITALS: BP 124/80; PULSE 67; RESP 20; O2SAT 96
[2018-01-14] MEDS: hydrOXYzine HCL 50 MG TAB PO PRN (00:05)
[2018-01-14 05:40] VITALS: BP 122/55; PULSE 79; RESP 16; TEMP 97.7; O2SAT 96
[2018-01-14] MEDS: QUEtiapine FUMARATE 25 MG TAB PO SCH (09:00)
[2018-01-14] MEDS: ASPIRIN EC 81 MG TABEC PO SCH (09:08)
[2018-01-14] MEDS: PANTOPRAZOLE SOD 20 MG DELAYED RELEASE TAB PO SCH (09:10)
[2018-01-14] MEDS: CHOLECALCIFEROL (VIT D3) 1000 UNIT TAB PO SCH (09:10)
--- NOTE | 2018-01-14 11:25 | HHI.PYPN ---
Subjective Remarks Patient seen in day room with nurse Ramirez and counselor Alanis, chart reviewed, patient compliant medications. Patient discussed with nurse. Patient no significant behavioral problems at this time, remains markedly diffusely confused and disoriented. For now continue treatment. Return to [facility] remains problematic Review of Systems Except as stated in HPI: all other systems reviewed are Neg Mental Status Examination Appearance: Appropriate (In [facility]) Consciousness: Alert Orientation: Person Motor Activity: Abnormal gait (Shuffling gait) Speech: Other (Nonsensical speech pattern) Language: Other (Limited) Fund of Knowledge: Poor Attention and Concentration: Inadequate Memory: Impaired (very poor) Mood: Appropriate, Oppositional (At times) Affect: Other (Decreased range and intensity) Thought Process & Associations: Disorganized Thought Content: Other (Markedly nonsensical) Hallucination Type: None Delusion Type: None Suicidal Ideation: No Suicidal Plan: No Suicidal Intention: No Homicidal Ideation: No Homicidal Plan: No Homicidal Intention: No Insight: Poor Judgment: Poor Results Vitals/IOs Vital Signs Date Time Temp Pulse Resp B/P (MAP) Pulse Ox O2 Delivery O2 Flow Rate FiO2 01/14/18 05:40 97.7 79 16 122/55 (77) 96 Intake and Output 01/14/18 01/14/18 01/15/18 08:00 16:00 00:00 Intake Total 360 ml Balance 360 ml Assessment & Plan Problem List: (1) Alzheimer's disease with late onset ICD Codes: G30.1 - Alzheimer's disease with late onset; F02.80 - Dementia in other diseases classified elsewhere without behavioral disturbance Assessment & Plan Estimated LOS: days at this time patient remains diffusely confused and disoriented and demented. The no behavioral problems. Placement remains problematic Justification for Cont. Inpt. At this time patient would decompensate if placed in a lower level of care Discharge Planning Probable return in to go problems Request HC Surrog/Guard Advoc?: Yes Problem Qualifiers (1) Alzheimer's disease with late onset: Qualified Codes: G30.1 - Alzheimer's disease with late onset; F02.81 - Dementia in other diseases classified elsewhere with behavioral disturbance Black Trinh MD January 14, 2018 11:25
[2018-01-14] MEDS: CITALOPRAM HYDROBROMIDE 20 MG TAB PO SCH (12:45)
[2018-01-14] MEDS: LORazepam 1 MG TAB PO SCH ×2 (12:49→20:37)
[2018-01-14] MEDS: QUEtiapine FUMARATE 100 MG TAB PO SCH ×2 (12:51→20:36)
[2018-01-14 18:39] VITALS: BP 168/80; PULSE 66; RESP 16; TEMP 97.2; O2SAT 97
[2018-01-15] MEDS: CHOLECALCIFEROL (VIT D3) 1000 UNIT TAB PO SCH (09:22)
[2018-01-15] MEDS: CITALOPRAM HYDROBROMIDE 20 MG TAB PO SCH (09:22)
[2018-01-15] MEDS: QUEtiapine FUMARATE 25 MG TAB PO SCH (09:22)
[2018-01-15] MEDS: ASPIRIN EC 81 MG TABEC PO SCH (09:22)
[2018-01-15] MEDS: PANTOPRAZOLE SOD 20 MG DELAYED RELEASE TAB PO SCH (09:22)
[2018-01-15] MEDS: LORazepam 1 MG TAB PO SCH ×2 (09:22→22:38)
[2018-01-15] MEDS: QUEtiapine FUMARATE 100 MG TAB PO SCH ×2 (14:00→22:37)
--- NOTE | 2018-01-15 14:22 | HHI.PYPN ---
Subjective Remarks Patient seen in the day room with floor staff, chart reviewed, patient complaint medications, patient discussed with nurse. Patient continues overall calm cooperative diffusely confused. He has been no significant behavioral problems lately Review of Systems Except as stated in HPI: all other systems reviewed are Neg Mental Status Examination Appearance: Appropriate (In [facility]) Consciousness: Alert Orientation: Person Motor Activity: Abnormal gait (Shuffling gait) Speech: Other (Nonsensical speech pattern) Language: Other (Limited) Fund of Knowledge: Poor Attention and Concentration: Inadequate Memory: Impaired (very poor) Mood: Appropriate, Oppositional (At times) Affect: Other (Decreased range and intensity) Thought Process & Associations: Disorganized Thought Content: Other (Markedly nonsensical) Hallucination Type: None Delusion Type: None Suicidal Ideation: No Suicidal Plan: No Suicidal Intention: No Homicidal Ideation: No Homicidal Plan: No Homicidal Intention: No Insight: Poor Judgment: Poor Results Vitals/IOs Vital Signs Date Time Temp Pulse Resp B/P (MAP) Pulse Ox O2 Delivery O2 Flow Rate FiO2 01/14/18 18:39 97.2 66 16 168/80 (109) 97 Intake and Output 01/15/18 01/15/18 01/16/18 08:00 16:00 00:00 Intake Total 480 ml Balance 480 ml Assessment & Plan Problem List: (1) Alzheimer's disease with late onset ICD Codes: G30.1 - Alzheimer's disease with late onset; F02.80 - Dementia in other diseases classified elsewhere without behavioral disturbance Assessment & Plan Estimated LOS: days patient continues confused and demented, compliant medications, no significant behavioral problems Justification for Cont. Inpt. Continue to await word from placement concerning legal issues Discharge Planning Probable return to [facility] Request HC Surrog/Guard Advoc?: Yes Problem Qualifiers (1) Alzheimer's disease with late onset: Qualified Codes: G30.1 - Alzheimer's disease with late onset; F02.81 - Dementia in other diseases classified elsewhere with behavioral disturbance Black Trinh MD January 15, 2018 14:22
[2018-01-15] MEDS: hydrOXYzine HCL 50 MG TAB PO PRN (15:34)
[2018-01-16 06:28] VITALS: BP 129/60; PULSE 64; RESP 16; TEMP 97.3; O2SAT 98
[2018-01-16] MEDS: LORazepam 1 MG TAB PO SCH (09:06)
[2018-01-16] MEDS: PANTOPRAZOLE SOD 20 MG DELAYED RELEASE TAB PO SCH (09:06)
[2018-01-16] MEDS: CHOLECALCIFEROL (VIT D3) 1000 UNIT TAB PO SCH (09:06)
[2018-01-16] MEDS: QUEtiapine FUMARATE 25 MG TAB PO SCH (09:06)
[2018-01-16] MEDS: ASPIRIN EC 81 MG TABEC PO SCH (09:06)
[2018-01-16] MEDS: CITALOPRAM HYDROBROMIDE 20 MG TAB PO SCH (09:07)
[2018-01-16] MEDS: QUEtiapine FUMARATE 100 MG TAB PO SCH ×2 (13:45→20:00)
--- NOTE | 2018-01-16 14:35 | HHI.PYPN ---
Subjective Remarks Chart reviewed and patient discussed with nursing staff. He continues to be on a 1:1 due to confusion and violent behavior. Patient sitting in the common area. He is calm and cooperative , folding napkins. He is rambling, mumbling in a very low tone. He appears to do well with repetition and small tasks. The staff voices no concerns at this time. His appetite has improved. Mental Status Examination Appearance: Appropriate (In [facility]) Consciousness: Alert Orientation: Person Motor Activity: Abnormal gait (Shuffling gait) Speech: Other (Nonsensical speech pattern) Language: Other (Limited) Fund of Knowledge: Poor Attention and Concentration: Inadequate Memory: Impaired (very poor) Mood: Appropriate, Oppositional (At times) Affect: Other (Decreased range and intensity) Thought Process & Associations: Disorganized Thought Content: Other (Markedly nonsensical) Hallucination Type: None Delusion Type: None Suicidal Ideation: No Suicidal Plan: No Suicidal Intention: No Homicidal Ideation: No Homicidal Plan: No Homicidal Intention: No Insight: Poor Judgment: Poor Results Vitals/IOs Vital Signs Date Time Temp Pulse Resp B/P (MAP) Pulse Ox O2 Delivery O2 Flow Rate FiO2 01/16/18 06:28 97.3 64 16 129/60 (83) 98 Intake and Output 01/16/18 01/16/18 01/17/18 08:00 16:00 00:00 Intake Total 600 ml 480 ml Balance 600 ml 480 ml Assessment & Plan Problem List: (1) Alzheimer's disease with late onset ICD Codes: G30.1 - Alzheimer's disease with late onset; F02.80 - Dementia in other diseases classified elsewhere without behavioral disturbance Assessment & Plan: Patient is cooperative today. Appetite is improving. He remains confused and mumbling. Discharge planning is continuous. Assessment & Plan Estimated LOS: days Justification for Cont. Inpt. Moving patient to a lower level of care may result in his decompensation. Request HC Surrog/Guard Advoc?: Yes Problem Qualifiers (1) Alzheimer's disease with late onset: Qualified Codes: G30.1 - Alzheimer's disease with late onset; F02.81 - Dementia in other diseases classified elsewhere with behavioral disturbance Brittny Miller January 16, 2018 14:35
[2018-01-16 18:00] VITALS: BP 104/60; PULSE 65; RESP 18; TEMP 97.4; O2SAT 98
[2018-01-16] MEDS: LORazepam 0.5 MG TAB PO SCH (20:33)
[2018-01-16] MEDS: hydrOXYzine HCL 50 MG TAB PO PRN (20:33)
[2018-01-17 06:43] VITALS: BP 136/73; PULSE 62; RESP 16; TEMP 97.3; O2SAT 98
[2018-01-17] MEDS: CITALOPRAM HYDROBROMIDE 20 MG TAB PO SCH (08:08)
[2018-01-17] MEDS: ASPIRIN EC 81 MG TABEC PO SCH (08:08)
[2018-01-17] MEDS: QUEtiapine FUMARATE 25 MG TAB PO SCH (08:08)
[2018-01-17] MEDS: LORazepam 0.5 MG TAB PO SCH ×2 (08:08→21:00)
[2018-01-17] MEDS: PANTOPRAZOLE SOD 20 MG DELAYED RELEASE TAB PO SCH (08:08)
[2018-01-17] MEDS: CHOLECALCIFEROL (VIT D3) 1000 UNIT TAB PO SCH (08:08)
--- NOTE | 2018-01-17 12:04 | HHI.PYPN ---
Subjective Remarks Patient seen and examined with nurse in weekend coverage. Chart reviewed. Case discussed with nursing staff who reports patient has been no significant behavioral problem. I find the patient in the day area. He is sitting with 1 of the behavioral health staff. He is quite confused and rambling but calm. No evident side effects from medications. No physical distress noted. Review of Systems ROS Limitations: Poor Historian Except as stated in HPI: all other systems reviewed are Neg Mental Status Examination Appearance: Appropriate ([facility]) Consciousness: Alert Orientation: Person Motor Activity: Other (No motor abnormalities noted) Speech: Incoherent Language: Other (Rambling) Fund of Knowledge: Poor Attention and Concentration: Inadequate Memory: Impaired Mood: Other (Calm) Affect: Blunt Thought Process & Associations: Disorganized Thought Content: Other (Poverty of thought) Hallucination Type: None Delusion Type: None Suicidal Ideation: No (No SI voiced) Homicidal Ideation: No (No HI voiced) Insight: Poor Judgment: Poor Results Labs Labs reviewed Vitals/IOs Vital Signs Date Time Temp Pulse Resp B/P (MAP) Pulse Ox O2 Delivery O2 Flow Rate FiO2 01/17/18 06:43 97.3 62 16 136/73 (94) 98 Assessment & Plan Problem List: (1) Alzheimer's disease with late onset ICD Codes: G30.1 - Alzheimer's disease with late onset; F02.80 - Dementia in other diseases classified elsewhere without behavioral disturbance Assessment & Plan Continue current psychiatric medications as ordered. Continue to monitor on the inpatient unit. Continue other medications and care as ordered. Justification for Cont. Inpt. Risk for decompensation in less restrictive environment. Discharge Planning As per primary psychiatrist Request HC Surrog/Guard Advoc?: Yes Problem Qualifiers (1) Alzheimer's disease with late onset: Qualified Codes: G30.1 - Alzheimer's disease with late onset; F02.81 - Dementia in other diseases classified elsewhere with behavioral disturbance Linden Shahid MD January 17, 2018 12:04
[2018-01-17 12:26] VITALS: BP 126/70; PULSE 60; RESP 18; O2SAT 100
[2018-01-17] MEDS: QUEtiapine FUMARATE 100 MG TAB PO SCH ×2 (13:53→20:00)
[2018-01-17] MEDS ORDERED: LORazepam 0.5 MG TAB PO PRN (14:00)
[2018-01-17] MEDS ORDERED: NITROGLYCERIN 2% OINT 1 GM PACKET TOPICAL PRN (14:00)
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
--- NOTE | 2018-01-17 14:13 | EKG ---
Date Performed: 01/17/2018 Time Performed: 12:59:08 PTAGE: 72 years EKG: SINUS BRADYCARDIA NONSPECIFIC INTRAVENTRICULAR CONDUCTION DELAY BORDERLINE ECG PREVIOUS TRACING : 01/03/2018 09.46 No significant change from previous tracing noted. DOCTOR: J Carlos Amaya Interpretating Date/Time 01/17/2018 14:11:26
[2018-01-17 14:34] LABS: TROPONIN I LESS THAN 0.02 NG/ML (0.02-0.05)
[2018-01-17] MEDS: hydrOXYzine HCL 50 MG TAB PO PRN (14:55)
[2018-01-17 18:51] VITALS: BP 127/65; PULSE 59; RESP 16; TEMP 98; O2SAT 98
[2018-01-17 20:26] LABS: TROPONIN I LESS THAN 0.02 NG/ML (0.02-0.05)
--- NOTE | 2018-01-17 21:26 | EKG ---
Date Performed: 01/17/2018 Time Performed: 19:15:38 PTAGE: 72 years EKG: SINUS BRADYCARDIA NONSPECIFIC INTRAVENTRICULAR CONDUCTION DELAY BORDERLINE ECG PREVIOUS TRACING : 01/17/2018 12.59 No significant change from previous tracing noted. DOCTOR: J Carlos Amaya Interpretating Date/Time 01/17/2018 21:23:57
[2018-01-18 01:55] LABS: TROPONIN I LESS THAN 0.02 NG/ML (0.02-0.05)
[2018-01-18 03:18] VITALS: BP 113/64; PULSE 61; RESP 16; O2SAT 98
[2018-01-18 09:34] VITALS: BP 105/66; PULSE 60
[2018-01-18] MEDS: QUEtiapine FUMARATE 25 MG TAB PO SCH (09:34)
[2018-01-18] MEDS: CHOLECALCIFEROL (VIT D3) 1000 UNIT TAB PO SCH (09:34)
[2018-01-18] MEDS: LORazepam 0.5 MG TAB PO SCH ×2 (09:34→21:17)
[2018-01-18] MEDS: ASPIRIN EC 81 MG TABEC PO SCH (09:34)
[2018-01-18] MEDS: CITALOPRAM HYDROBROMIDE 20 MG TAB PO SCH (09:34)
[2018-01-18] MEDS: PANTOPRAZOLE SOD 20 MG DELAYED RELEASE TAB PO SCH (09:34)
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
[2018-01-18] MEDS: QUEtiapine FUMARATE 100 MG TAB PO SCH ×2 (14:00→20:07)
--- NOTE | 2018-01-18 14:31 | HHI.PYPN ---
Subjective Remarks Reviewed electronic medical records and discussed case with staff. Staff reports that patient had to be given an ETO just recently for increasing agitation and aggression. Patient was found lying in his bed with a sitter present in his room. He is resting comfortably at that time. Per staff he had been coming loud, profane, and continues to be confused. Mental Status Examination Appearance: Appropriate (Fair grooming) Consciousness: Alert Orientation: Person Motor Activity: Other (No motor abnormalities noted) Speech: Incoherent Language: Other (Rambling) Fund of Knowledge: Poor Attention and Concentration: Inadequate Memory: Impaired Mood: Other (Calm) Affect: Blunt Thought Process & Associations: Disorganized Thought Content: Other (Poverty of thought) Hallucination Type: None Delusion Type: None Suicidal Ideation: No (No SI voiced) Homicidal Ideation: No (No HI voiced) Insight: Poor Judgment: Poor Results Labs Test 01/17/18 19:49 01/18/18 01:10 Total Creatine Kinase 107 U/L 102 U/L Troponin I LESS THAN 0.02 NG/ML LESS THAN 0.02 NG/ML Vitals/IOs Vital Signs Date Time Temp Pulse Resp B/P (MAP) Pulse Ox O2 Delivery O2 Flow Rate FiO2 01/18/18 09:34 60 105/66 (79) 01/18/18 03:18 16 01/18/18 03:18 98 01/17/18 18:51 98.0 Intake and Output 01/18/18 01/18/18 01/19/18 08:00 16:00 00:00 Intake Total 260 ml Balance 260 ml Assessment & Plan Problem List: (1) Alzheimer's disease with late onset ICD Codes: G30.1 - Alzheimer's disease with late onset; F02.80 - Dementia in other diseases classified elsewhere without behavioral disturbance Assessment & Plan Estimated LOS: Continue with treatment plan as patient continues to experience intermittent agitation. His attending psychiatrist will assess him tomorrow. Days Justification for Cont. Inpt. Moving this patient to a lower level of care would result in decompensation. Request HC Surrog/Guard Advoc?: Yes Problem Qualifiers (1) Alzheimer's disease with late onset: Qualified Codes: G30.1 - Alzheimer's disease with late onset; F02.81 - Dementia in other diseases classified elsewhere with behavioral disturbance Reyna Butler January 18, 2018 14:31
[2018-01-18] MEDS: hydrOXYzine HCL 50 MG TAB PO PRN (17:27)
[2018-01-18 18:00] VITALS: BP 113/66; PULSE 79; RESP 18; TEMP 98.5; O2SAT 93
[2018-01-19 06:55] VITALS: BP 132/83; PULSE 59; RESP 24; TEMP 97.3; O2SAT 97
[2018-01-19] MEDS: CHOLECALCIFEROL (VIT D3) 1000 UNIT TAB PO SCH (09:00)
[2018-01-19] MEDS: ASPIRIN EC 81 MG TABEC PO SCH (09:00)
[2018-01-19] MEDS: LORazepam 0.5 MG TAB PO SCH ×2 (09:00→18:20)
[2018-01-19] MEDS: QUEtiapine FUMARATE 25 MG TAB PO SCH (09:00)
[2018-01-19] MEDS: CITALOPRAM HYDROBROMIDE 20 MG TAB PO SCH (09:00)
[2018-01-19] MEDS: PANTOPRAZOLE SOD 20 MG DELAYED RELEASE TAB PO SCH (09:00)
[2018-01-19] MEDS: QUEtiapine FUMARATE 100 MG TAB PO SCH ×2 (13:24→21:05)
--- NOTE | 2018-01-19 14:28 | HHI.PYPN ---
Subjective Remarks Patient seen in his room with nurse iesha, and tobias. Patient chart review patient complaint medications, patient discussed with nurse. Nurse stating that patient seem to be trying some fairly good response with small dose of Ativan in a.m. However by noon 1 PM he is noted be getting somewhat agitated and anxious and nervous. We will add 0.5 mg Ativan at about 1 PM he will also continue the evening dose. Review of Systems Except as stated in HPI: all other systems reviewed are Neg Mental Status Examination Appearance: Appropriate (Fair grooming) Consciousness: Alert Orientation: Person Motor Activity: Other (No motor abnormalities noted) Speech: Incoherent Language: Other (Rambling) Fund of Knowledge: Poor Attention and Concentration: Inadequate Memory: Impaired Mood: Other (Calm) Affect: Blunt Thought Process & Associations: Disorganized Thought Content: Other (Poverty of thought) Hallucination Type: None Delusion Type: None Suicidal Ideation: No (No SI voiced) Homicidal Ideation: No (No HI voiced) Insight: Poor Judgment: Poor Results Vitals/IOs Vital Signs Date Time Temp Pulse Resp B/P (MAP) Pulse Ox O2 Delivery O2 Flow Rate FiO2 01/19/18 06:55 97.3 59 24 132/83 (99) 97 Assessment & Plan Problem List: (1) Alzheimer's disease with late onset ICD Codes: G30.1 - Alzheimer's disease with late onset; F02.80 - Dementia in other diseases classified elsewhere without behavioral disturbance Assessment & Plan Estimated LOS: days patient continues confused and demented with some slight increase in his agitation in the afternoons she medication adjustment above Justification for Cont. Inpt. At this time patient would decompensate if placed in a lower level of care Discharge Planning Probable return home Request HC Surrog/Guard Advoc?: Yes Problem Qualifiers (1) Alzheimer's disease with late onset: Qualified Codes: G30.1 - Alzheimer's disease with late onset; F02.81 - Dementia in other diseases classified elsewhere with behavioral disturbance Black Trinh MD January 19, 2018 14:28
[2018-01-19 17:36] VITALS: BP 121/64; PULSE 56; RESP 17; TEMP 97.4; O2SAT 97
[2018-01-20] MEDS: ASPIRIN EC 81 MG TABEC PO SCH (10:35)
[2018-01-20] MEDS: CHOLECALCIFEROL (VIT D3) 1000 UNIT TAB PO SCH (10:35)
[2018-01-20] MEDS: CITALOPRAM HYDROBROMIDE 20 MG TAB PO SCH (10:36)
[2018-01-20] MEDS: PANTOPRAZOLE SOD 20 MG DELAYED RELEASE TAB PO SCH (10:36)
[2018-01-20] MEDS: QUEtiapine FUMARATE 25 MG TAB PO SCH (10:36)
[2018-01-20] MEDS: LORazepam 0.5 MG TAB PO SCH ×2 (10:37→13:00)
[2018-01-20] MEDS ORDERED: CELE20TA PO (13:07)
[2018-01-20] MEDS ORDERED: CHOL1000 PO (13:07)
[2018-01-20] MEDS ORDERED: ECASA81 PO (13:07)
[2018-01-20] MEDS ORDERED: QUET1TAB8 PO (13:07)
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
[2018-01-20] MEDS: QUEtiapine FUMARATE 100 MG TAB PO SCH (14:00)
== END 2018-01-20 15:04 | DRG 57 ==
LOC: NEDAMB 19:44 → NEDA 01-02 16:50 → H4EA 01-02 18:02 → H250 01-09 09:08 → H4EA 01-12 16:10 → H250 01-13 14:15 → H260 01-14 05:40 → H250 01-17 19:39
PROVIDERS: ADMIT Psychiatry & Neurology Psychiatry; ATTEND Psychiatry & Neurology Psychiatry
DX: G30.1 Alzheimer's disease with late onset (principal); F02.81 Dementia in other diseases classified elsewhere, unspecified severity, with behavioral disturbance; R07.9 Chest pain, unspecified; R21 Rash and other nonspecific skin eruption; I10 Essential (primary) hypertension; F32.9 Major depressive disorder, single episode, unspecified; F43.10 Post-traumatic stress disorder, unspecified; I25.10 Atherosclerotic heart disease of native coronary artery without angina pectoris; Z95.1 Presence of aortocoronary bypass graft; Z86.73 Personal history of transient ischemic attack (TIA), and cerebral infarction without residual deficits; K21.9 Gastro-esophageal reflux disease without esophagitis; E55.9 Vitamin D deficiency, unspecified; Z79.82 Long term (current) use of aspirin
CPT/HCPCS: 80048; 80053; 80061; 80307; 81001; 82306; 82550; 82552; 82607; 83036; 84443; 84484; 85025; 93005; 96372; J1200; J1630; J2060